=== PATIENT | female | born 1995 | race Caucasian/White ===

== ENCOUNTER → 2017-06-27 | Outpatient (CLI) | payer BC | LOC: FIMAGING 14:38 | PROVIDERS: ATTEND Advanced Practice Midwife | DX: R10.2 Pelvic and perineal pain (principal) ==

== ENCOUNTER → 2018-07-19 | Outpatient (CLI) | payer BC | LOC: FIMAGING 15:49 | PROVIDERS: ATTEND Family Medicine | DX: O20.8 Other hemorrhage in early pregnancy (principal); O35.8XX0 Maternal care for other (suspected) fetal abnormality and damage, not applicable or unspecified; Z3A.01 Less than 8 weeks gestation of pregnancy ==

== ENCOUNTER → 2019-01-28 | Outpatient (CLI) | payer BC, MEDICAID | LOC: FIMAGING 14:13 ==

== ENCOUNTER 2019-02-10 16:58 | Observation (INO) | payer BC, MEDICAID | END 2019-02-10 20:30 | disposition home or self-care (01) | LOC: FLD 16:58 ==